=== PATIENT | male | born 1930 | race Caucasian/White ===

== ENCOUNTER 2018-03-22 08:37 | Day surgery (SDC) | payer OTHER ==
[~2018-03-22] VITALS: Ht 175.3 cm; Wt 63.4 kg
[~2018-03-22 08:37] MED LIST: ASPI-1181 PO; PROVENTIL IH; SODIUM CHLORIDE 0.9% 1000ML 1,000 ML IV ONE; SPIRIVA IH; SYMBICORT IH
[2018-03-22 09:46] VITALS: BP 98/51
[2018-03-22] MEDS ORDERED: TAMS0.4C32 PO (11:06)
[2018-03-22] MEDS ORDERED: LACT10SO32 PO (11:06)
[2018-03-22] MEDS ORDERED: BETA1TAB20 PO (11:06)
[2018-03-22] MEDS ORDERED: ERGO500014 PO (11:06)
[2018-03-22] MEDS ORDERED: CLIN300C9 PO (11:06)
[2018-03-22] MEDS ORDERED: PROPOFOL 10 MG/ML 20ML VIAL IV ONE ×2 (12:09)
== END 2018-03-22 13:20 | disposition home or self-care (01) ==
LOC: ENDO 08:37 → DAH 08:37 → ENDO 13:20
PROVIDERS: ATTEND Internal Medicine
DX: D12.2 Benign neoplasm of ascending colon (principal); C18.4 Malignant neoplasm of transverse colon; K62.1 Rectal polyp; D50.9 Iron deficiency anemia, unspecified; J44.9 Chronic obstructive pulmonary disease, unspecified; Z98.49 Cataract extraction status, unspecified eye; Z79.899 Other long term (current) drug therapy; K64.4 Residual hemorrhoidal skin tags; K64.8 Other hemorrhoids
CPT/HCPCS: 45380; 45381; 45385; 93005; A4606; J2704 ×2; J7030